=== PATIENT | male | born 1965 | race African-American/Black ===

== ENCOUNTER 2022-02-21 17:57 | Emergency (ER) | payer OTHER ==
[~2022-02-21] VITALS: Ht 175.3 cm; Wt 94.3 kg
[2022-02-21 19:45] LABS: Urine Bacteria NONE SEEN /hpf (None Seen); Urine Blood Negative /uL (Negative); Urine Specific Gravity 1.015 (1.001-1.035); Urine WBC 6 /hpf (0 - 3)
[2022-02-21 22:15] VITALS: BP 132/81
== END 2022-02-21 22:08 | disposition home or self-care (01) ==
LOC: ER 17:57
DX: N43.3 Hydrocele, unspecified (principal); N50.811 Right testicular pain
CPT/HCPCS: 76870; 81001